=== PATIENT | female | born 1970 | race Caucasian/White ===

== ENCOUNTER 2019-01-24 01:22 | Outpatient (CLI) | payer OTHER, SELFPAY ==
--- NOTE | 2019-01-24 10:24 | DI.US_ITS ---
EXAM: US THYROID CLINICAL HISTORY: EPISODIC DISCOMFORT THYROID GLAND, EVAL FOR ABNORMALITIES TECHNIQUE: Ultrasound performed using standard protocol. COMPARISON: No exams were available for comparison FINDINGS: The right lobe of the thyroid measures 4.6 x 1.4 x 1.5 cm. The left lobe measures 4.3 x 1.1 x 1.2 c m. The thyroid echotexture is homogeneous. No cysts or nodules are seen. The isthmus appears charis l in thickness. IMPRESSION: Negative thyroid ultrasound.
== END 2019-01-24 01:42 ==
PROVIDERS: PCP Internal Medicine; Visit Provider Physician Assistant
DX: E07.89 Other specified disorders of thyroid (principal)
CPT/HCPCS: 76536

== ENCOUNTER 2019-09-06 02:12 | Outpatient (CLI) | payer OTHER, SELFPAY ==
--- NOTE | 2019-09-06 | DI.MAMMO_ITS ---
EXAM: MAMMO SCREENING CLINICAL HISTORY: SCREENING, Z12.39 TECHNIQUE: Mammograms were interpreted according to the usual protocol including computer analysis w [employer] CAD system, tomosynthesis and C-view imaging. COMPARISON: 2011 through 2017 FINDINGS: The breasts are composed of heterogeneously dense fibroglandular densities, Breast Density category C . No suspicious masses or suspicious microcalcifications are seen. No skin thickening or abnormal axillary lymph nodes are seen. There has been no significant change from prior exams. IMPRESSION: BI-RADS Category 1: Negative mammogram. Yearly screening mammography is recommended. Breast density category C, heterogeneously dense tissue which decreases the sensitivity of the mammog pat. The mammogram demonstrates the patient's breast tissue is dense. Dense breast tissue is very common a nd is not abnormal but dense breast tissue can make it harder to find cancer on a mammogram. Also, de nse breast tissue may increase breast cancer risk. This information about the result of the mammogram report was provided to the patient to raise their awareness. Use this report when you speak with the patient about their risks for breast cancer, which includes their family history. At that time, you may recommend additional screening tests (Ultrasound or MRI) as they might be useful based on their r isk. A negative radiographic report should not delay biopsy if a dominant or clinically suspicious mass is present. Up to ten percent of cancers are not identified on mammography. A negative report may reinforce clinical impression. Adenosis and dense breasts may obscure an underlying neoplasm. False positive reports average 6 to 10%.
== END 2019-09-06 02:32 ==
PROVIDERS: PCP Internal Medicine; Visit Provider Nurse Practitioner Family
DX: Z12.31 Encounter for screening mammogram for malignant neoplasm of breast (principal)
CPT/HCPCS: 77063; 77067

== ENCOUNTER 2019-11-03 07:18 | Day surgery (SDC) | payer OTHER, SELFPAY ==
[2019-11-03 07:45] VITALS: BP 115/76; PULSE 74; RESP 17; TEMP 36.5; O2SAT 100
[2019-11-03] MEDS: Lactated Ringers 1,000 ML 80 ML IV (08:11)
--- NOTE | 2019-11-03 08:38 | W.PM.DSUDISC ---
Discharge Plan Disposition Patient Disposition: HOME Condition: Good Discharge Details Reason For Visit: Colonoscopy Attending Provider: Regla Perkins Primary Care Provider: Sneha Butt Home Meds and New Rx's Prescriptions: Continued prochlorperazine maleate 5 mg tablet 5 mg PO TID PRN (Reason: nausea and vomiting) Qty: 30 RF: 2 alprazolam 0.5 mg tablet 0.5 mg PO TID PRNRF: 0 rizatriptan [Maxalt] 10 mg tablet 10 mg PO PRN Qty: 10 RF: 6 ibuprofen [Advil] 200 mg Tablet RF: 0 Discharge Instructions Additional Instructions: Findings: Your colonoscopy was normal. Follow up: Plan for routine screening colonoscopy in 10 years or sooner if symptoms arise. Please call if you develop: fevers >101.5 Nausea or Vomiting Abdominal pain that is not transient DAY SURGERY UNIT POST COLONOSCOPY INSTRUCTIONS 1. Because there will be medication in your system for the next 24 hours, you may feel a little sleepy. Your coordination will be affected. Therefore: a. Do not drive or operate dangerous equipment for 24 hours. b. Do not drink alcohol beverages for 24 hours (not even beer). c. Plan to go home and rest for the day. 2. Generally there are no restrictions on your activity after a day or so has gone by, but you may feel a bit fatigued for a few days. 3 After you arrive home you may have a light meal and return to a normal diet as you can tolerate it without feeling sick to your stomach. 4. After surgery, you may feel pain or discomfort. This should be only transient, but if it persists please contact your doctor. 5. If there are any questions regarding the findings of your procedure, please feel free to contact your doctor. 6. If you are unable to contact your doctor with a problem, contact the hospital at [phone]. 7. Continue all your regular medications unless directed otherwise. I understand the above instructions and have no questions. Signature of Patient or Responsible Adult Escort Date/Time Name of Responsible Adult Escort Signature of Nurse Date/Time Activity:: Activity as Tolerated Diet:: As Tolerated Discharge Orders Discharge Orders: Discharge Order (Routine); Ordered 11/03/19 Ordered By: Regla Perkins DS: Diagnosis Discharge Diagnosis (1) Normal colonoscopy: Status: Acute
--- NOTE | 2019-11-03 08:39 | W.COLOREPORT ---
Date of service: 11/03/19 Time of Service: 09:32 Colonoscopy Report Date of procedure: 11/03/19 Pre-op diagnosis general: Screening Post-op diagnosis procedure note: other (Normal colon) Procedure: Colonoscopy Surgeon: Regla Perkins Anesthesia proc note operative: MAC Indications: This 49 year old female presents for her first screening colonoscopy. No symptoms or FH colon cancer. Procedure Description: The patient was placed in the left Strange position. Propofol was titrated to sedation. Digital rectal examination revealed no abnormalities. The scope was advanced to the cecum without difficulty. The ileocecal valve and appendiceal orifice were clearly identified. The prep was good. The scope was slowly withdrawn over the course of greater than 6 minutes with no abnormalities seen in the ascending, transverse, descending, sigmoid colon or rectum including on retroflexed view. The patient tolerated the procedure well and was stable to recovery. Plan for routine screening colonoscopy in 10 years or sooner if symptoms indicate.
[2019-11-03 09:35] VITALS: BP 99/65; PULSE 89; RESP 16; TEMP 36.5; O2SAT 99
== END 2019-11-03 10:11 | disposition home or self-care (01) ==
PROVIDERS: PCP Internal Medicine; Visit Provider Surgery
PROC: 0DJD8ZZ Inspection of Lower Intestinal Tract, Via Natural or Artificial Opening Endoscopic (ICD-10-PCS; CPT 45378; principal; 2019-11-03 09:00)
DX: Z12.11 Encounter for screening for malignant neoplasm of colon (principal)
CPT/HCPCS: 45378

== ENCOUNTER 2020-04-09 03:06 | Outpatient (CLI) | payer OTHER, SELFPAY ==
[2020-04-10 19:09] LABS: COVID-19 RT-PCR UVMMC Result Negative (Negative)
== END 2020-04-09 03:26 ==
PROVIDERS: PCP Internal Medicine; Visit Provider Family Medicine
DX: Z11.52 Encounter for screening for COVID-19 (principal); Z01.811 Encounter for preprocedural respiratory examination
CPT/HCPCS: U0003

== ENCOUNTER 2020-04-12 00:24 | Outpatient (CLI) | payer OTHER, SELFPAY | END 2020-04-12 00:44 | PROVIDERS: PCP Internal Medicine; Visit Provider Internal Medicine | DX: R06.09 Other forms of dyspnea (principal) | CPT/HCPCS: 94060; 94726; 94729 ==

== ENCOUNTER 2020-04-12 00:25 | Outpatient (RCR) | payer OTHER, SELFPAY ==
--- NOTE | 2020-04-12 10:00 | HOLTER_ITS ---
APPROVED REPORT Exam Type: HOLTER MONITOR APPLICATION Reason for Test: MORENO Patient Location: O Conclusion This was a 48-hour Holter monitor, reportedly ordered for shortness of breath on exertion The rhythm throughout was sinus. Average heart rate was 82. Minimum was 59, maximum 149 There were very rare atrial and ventricular ectopic beats No atrial fibrillation, no pauses greater than 3 seconds, no high-grade AV block Patient symptoms corresponded to sinus rhythm, rate 73 to 87 bpm
--- NOTE | 2020-04-15 14:52 | W.PFT ---
Date of service: 04/12/20 Time of Service: 10:23 Pulmonary Function Test Result Interpretation Spirometry: No evidence of obstructive airways disease, but there is significant bronchodilator response of 16% improvement in FEV1 after bronchodilator administration, however the prebronchodilator testing was extremely poor patient effort. This is likely only representing improvement in the patient effort Lung Volumes: No evidence of restriction Diffusion Capacity: Normal Airway Pressure: Normal Impression Normal pulmonary function test significant appearing bronchodilator response is only due to much better patient effort for the post bronchodilator testing Clinical Correlation therefore is recommended.
== END 2020-04-21 23:59 | disposition home or self-care (01) ==
LOC: RT 00:25
PROVIDERS: PCP Internal Medicine; Visit Provider Internal Medicine
DX: R06.09 Other forms of dyspnea (principal)
CPT/HCPCS: 93225; 93226

== ENCOUNTER 2020-04-25 01:20 | Outpatient (CLI) | payer OTHER, SELFPAY ==
--- NOTE | 2020-04-25 10:30 | DI.US_ITS ---
APPROVED REPORT EXAM: Comprehensive 2D, Doppler, and color-flow Echocardiogram Patient Location: Out-Patient Laboratory Supervisor: Mandi Wong RDCS (AE) Indications: A Typical chest pain, Palpitations, h/o A Fib Other Information Study Quality: Good Conclusion Left Ventricle : The left ventricle is normal size. The left ventricular systolic function is normal. The left ventricular ejection fraction is within the normal range. There is normal left ventricular wall thickness. There is normal LV segmental wall motion. The left ventricular diastolic function is normal. LVEF is 60%. Right Ventricle : The right ventricle is normal size. The right ventricular systolic function is norm al. The RVSP is 18.5 mmHg. Atria : The left atrium size is normal. The right atrium size is normal. Valves: There are no hemodynamically significant valvular lesions Great Vessels : The aortic root is normal in size. The ascending aorta is normal in size. Aortic arch is normal in caliber. IVC is normal in size and collapses >50% with inspiration. Please see remainder of study for further details. There is no prior study available for comparison. Wall motion Left Ventricle The left ventricle is normal size. The left ventricular systolic function is normal. The left ventric ular ejection fraction is within the normal range. There is normal left ventricular wall thickness. T here is normal LV segmental wall motion. The left ventricular diastolic function is normal. There is no ventricular septal defect visualized. LVEF is 60%. Right Ventricle The right ventricle is normal size. The right ventricular systolic function is normal. The RVSP is 18 .5 mmHg. Atria The left atrium size is normal. The right atrium size is normal. The interatrial septum is intact wit h no evidence for an atrial septal defect. Aortic Valve The aortic valve is normal in structure. Aortic valve is trileaflet. There is no aortic valvular sten osis. No aortic regurgitation is present. Mitral Valve The mitral valve is normal in structure. No evidence of mitral valve stenosis. Trace mitral regurgita tion. Tricuspid Valve The tricuspid valve is normal in structure. There is no tricuspid valve stenosis. Trace tricuspid reg urgitation. Pulmonic Valve The pulmonary valve is normal in structure. There is no pulmonic valvular stenosis. There is no pulmo mena valvular regurgitation. Great Vessels The aortic root is normal in size. The ascending aorta is normal in size. Aortic arch is normal in ca liber. IVC is normal in size and collapses >50% with inspiration. Pericardium There is no pericardial effusion. 2D Dimensions IVSD d PLAX 0.69 cm F: 0.6-1.0 LV Vol A2C d MOD 63.8 mL LVPW d PLAX 0.73 cm F: 0.6 - 1.0 LV Vol A4C d MOD 59.8 mL LVID d PLAX 4.00 cm F: 3.8 - 5.2 LA Area A4C s MOD 8.10 cm2 LVDs 2.45 cm F: 2.2 - 3.5 LA Area A2C s MOD 14.44 cm2 Ao Root d 2.39 cm F: 2.7 - 3.3 LV EF A4C MOD 60.2 % RA Area A4C 10.68 cm2 LV EF A2C MOD 61.4 % Ao Asc Diam d 2.59 cm F: 2.3 - 3.1 LV EF Biplane MOD 60.9 % LV EF Teichholz 68.4 % SV 37.85 mL LVEF (Schulte's) 60.93 % F: 54 - 74 LV Volume 62.13 mL F: 46 - 106 LV Volume Index 37.88 mL/m2 F: 29 - 61 LV Vol Biplane MOD 62.1 mL FS 37.75 % M-Mode TAPSE 2.62 cm (M/F) >1.7 LV Diastology MV E' medial 0.105 (>0.07 m/s) E/A Ratio 1.1 LV E/e MED 7.85 (<14) MV E Vmax 0.83 (0.4-1.3 m/s) MV E' lateral 0.106 (>0.1 m/s) MV A Vmax 0.75 (0.4-1.3 m/s) LV E/e LAT 7.75 (<14) MV E/A Ratio 1.07 MV E/E' medial 7.86 MV E/E' lateral 7.77 Aortic Valve LVOT Area 2.49 cm2 AoV Area Vmax 1.99 cm2 LVOT Vmax 0.93 m/s KATELYNN Mean Chad. 1.65 cm2 LVOT Mean Chad. 0.60 m/s LVOT Peak Grad 3.5 mmHg LVOT Mean Grad 1.7 mmHg LVOT VTI 0.199 m LVOT Diam s 1.75 cm AoV Vmax 1.16 m/s Velocity Ratio 0.80 AoV Mean Chad. 0.91 m/s AoV Peak Grad 5.4 mmHg LVOT SV 49.60 mL AoV Mean Grad 3.6 mmHg AoV VTI 0.233 m AoV Area VTI 2.13 cm2 Mitral Valve MV DT 228 (160-240 msec) MV PHT 66 msec MV Area PHT 3.33 cm2 MV VTI 0.285 m MV Area VTI 1.74 (4.0-6.0 cm2) Pulmonary Valve PV Vmax 0.77 (0.5-1.5 m/s) RVOT Peak Gr. 2.23 mmHg PV Peak Grad 2.4 mmHg RVOT Mean Gr. 1.05 mmHg PV Mean Grad 1.3 mmHg RVOT VTI 0.165 m PV VTI 0.160 m RVOT Vmax 0.75 m/s Tricuspid Valve TR Peak Grad 15.4 mmHg TR Vmax 1.97 m/s RA Pressure 3.00 mmHg RVSP (TR) 18.5 mmHg
== END 2020-04-25 01:21 | disposition home or self-care (01) ==
LOC: DI 01:20
PROVIDERS: PCP Internal Medicine; Visit Provider Internal Medicine
DX: R07.89 Other chest pain (principal); Z86.79 Personal history of other diseases of the circulatory system; R00.2 Palpitations
CPT/HCPCS: 93306

== ENCOUNTER 2020-04-25 13:48 | Outpatient (REF) | payer OTHER, SELFPAY ==
--- NOTE | 2020-04-25 13:15 | PAPFT_PTH ---
PATIENT: Norma Woods LOC: [facility] U#:[id number] AGE/SX: 50/F ROOM: RE04/25/[address]: OLIVIA Nunez : 1970 BED: DIS: 04/25/2020 SPEC #: [id number] RECD: 04/25/20 17:42 STATUS: WANDER REWhitney #: [id number] JIMMY: 04/25/20 13:[address]: Britt Richardson DEPT: [facility] Cytology RECD BY: Vicki White ENTERED: 04/25/20 17:43 SP TYPE: PAPFT OTHR DR: Sneha Butt Tissues: 1 - CX/ENDOCX FOR PAP SMEARS Procedures: PAP THIN PREP/[facility] Screening HPV DNA PROBE Comments: [id number]
== END 2020-04-25 13:49 | disposition home or self-care (01) ==
LOC: LBN 13:48
PROVIDERS: PCP Internal Medicine; Visit Provider Nurse Practitioner Family
DX: Z12.4 Encounter for screening for malignant neoplasm of cervix (principal); Z11.51 Encounter for screening for human papillomavirus (HPV)
CPT/HCPCS: 88142; 87624

== ENCOUNTER → 2021-10-14 03:01 | Outpatient (CLI) | payer OTHER, SELFPAY ==
--- NOTE | 2021-10-14 07:30 | DI.MAMMO_ITS ---
Exam(s) MAMMO SCREENING EXAM: MAMMO SCREENING CLINICAL HISTORY: screening, Z12.39 TECHNIQUE: Bilateral full field digital CC and MLO mammographic images were obtained with 3D tomosyn thesis and utilizing computer aided detection (CAD). COMPARISON: Available for comparison. FINDINGS: Masses/Architectural Distortion: None seen. Microcalcifications: No suspicious pleomorphic-type are seen. Skin Thickening/Nipple Retraction: None. IMPRESSION: 1. No significant interval change with no specific features of malignancy noted. 2. Unless there is more urgent need, screening mammography is recommended, as per [employer] guidelines. BI-RADS Category 1 - Negative Breast Density - Category C - Heterogeneously dense Breast density category C or D implies that the patient has dense breast tissue. Dense breast tissue is very common and is not abnormal but dense breast tissue can make it harder to find cancer on a ma mmogram. Also, dense breast tissue may increase their breast cancer risk. This information about the result of the mammogram report was provided to the patient to raise their awareness. Use this report when you speak with the patient about their risks for breast cancer, which includes their family hist ory. At that time, you may recommend for more screening tests (Ultrasound or MRI) as they might be us eful based on their risk. A negative radiographic report should not delay biopsy if a dominant or clinically suspicious mass is present. Up to ten percent of cancers are not identified on mammography. A negative report may reinforce clinical impression. Adenosis and dense breasts may obscure an underlying neoplasm. False positive reports average 6 to 10%. Patient will receive a letter notifying them of these results.
== END ==
PROVIDERS: PCP Internal Medicine; Visit Provider Nurse Practitioner Family
DX: Z12.31 Encounter for screening mammogram for malignant neoplasm of breast (principal)
CPT/HCPCS: 77063; 77067